=== PATIENT | female | born 1960 | race American Indian/Alaskan Native ===

== ENCOUNTER 2017-01-07 22:44 | Inpatient (IN) | payer MEDICAID ==
[2017-01-07 22:44] VITALS: BMI 23.8
--- NOTE | 2017-01-07 23:36 | C.PDOC ---
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 Denies suicidal ideation, homicidal ideation, or drug use. Patient also notes she has had a cough with some yellow phlegm. Time Seen by Provider: 01/07/17 23:04 Chief Complaint (Nursing): Substance Abuse History Per: Patient History/Exam Limitations: no limitations Onset/Duration Of Symptoms: Days Current Symptoms Are (Timing): Still Present Suicide/Self Injury Attempted (Context): None Modifying Factor(s): Alcohol Associated Symptoms: denies: Depression, Suicidal Thoughts, Suicidal Plan Involuntary Hold By: None Recent travel outside of the [place]: No Past Medical History Reviewed: Historical Data, Nursing Documentation, Vital Signs Vital Signs: Last Vital Signs Temp 98.4 F 01/07/17 22:49 Pulse 102 H 01/07/17 22:49 Resp 18 01/07/17 22:49 BP 131/94 H 01/07/17 22:49 Pulse Ox 99 01/08/17 00:51 - Medical History PMH: Asthma, Bronchitis, CHF, HTN Surgical History: No Surg Hx - [facility] DETOXIF[facility] SERVICES FOR SUBSTANCE ABUSE TREATMENT (05/27/16) Family History: States: Unknown Family Hx - Social History Hx Alcohol Use: Yes Hx Substance Use: No (Former use of heroine) - Immunization History Hx Tetanus Toxoid Vaccination: No Hx Influenza Vaccination: Yes (Jan 2016) Hx Pneumococcal Vaccination: No Review Of Systems Except As Marked, All Systems Reviewed And Found Negative. Constitutional: Positive for: Other (ETOH use) Respiratory: Positive for: Cough, Sputum. Negative for: Shortness of Breath Physical Exam - Physical Exam Appears: Non-toxic, No Acute Distress Skin: Normal Color, Warm, Dry Head: Atraumatic, Normacephalic Oral Mucosa: Moist Chest: Symmetrical Cardiovascular: Rhythm Regular Respiratory: Other (Coarse breath sounds) Gastrointestinal/Abdominal: Soft, No Tenderness Neurological/Psych: Oriented x3, Normal Speech, Normal Cognition ED Course And Treatment - Laboratory Results Result Diagrams: 01/08/17 00:22 01/08/17 00:22 O2 Sat by Pulse Oximetry: 99 (Room air) Pulse Ox Interpretation: Normal Medical Decision Making Medical Decision Making: Impression: ETOH abuse Plan: Blood work, CXR, Urinalysis case s/o at 0100 Disposition - Disposition Disposition Time: 01:00 Condition: FAIR Forms: [facility] (Mexican) - Clinical Impression Clinical Impression: Alcohol use disorder, severe, dependence - Scribe Statement The provider has reviewed the documentation as recorded by the Scribe Elver Gonzalez All medical record entries made by the Scribe were at my direction and personally dictated by me. I have reviewed the chart and agree that the record accurately reflects my personal performance of the history, physical exam, medical decision making, and the department course for this patient. I have also personally directed, reviewed, and agree with the discharge instructions and disposition. Physician Patient Turnover Patient Signed Over To: Jamar Call (Pending medical clearance)
[2017-01-08 00:34] LABS: RBC URINE < 1 /hpf (0-3); URINE BILIRUBIN NEGATIVE (NEGATIVE); URINE BLOOD 1+ (NEGATIVE); URINE COLOR Yellow (YELLOW); URINE GLUCOSE (UA) NORMAL (Normal); URINE KETONE TRACE mg/dL (NEGATIVE); URINE LEUKOCYTE ESTERASE NEG Leu/uL (Negative); URINE PROTEIN 1+ mg/dL (NEGATIVE); WBC URINE 1 /hpf (0-5)
[2017-01-08 00:39] LABS: BASO % 0.6 % (0.0-2.0); EOS % 0.8 % (0.0-4.0); HEMATOCRIT 40.5 % (34.0-47.0); LYMPH # 2.7 K/uL (1.0-4.3); LYMPH % 52.7 % (20.0-40.0); MEAN CELL VOLUME 96.3 fL (81.0-99.0); MEAN CORPUSCULAR HEMOGLOBIN 34.5 pg (27.0-31.0); MEAN CORPUSCULAR HGB CONC 35.8 g/dL (33.0-37.0); MONO # 0.5 K/uL (0.0-0.8); MONO % 10.5 % (0.0-10.0); NRBC % 0.5 % (0.0-2.0); WHITE BLOOD COUNT 5.1 K/uL (4.8-10.8)
[2017-01-08 00:44] LABS: CHLORIDE 99 mmol/L (98-107); POTASSIUM 3.2 mmol/L (3.6-5.2); SODIUM 138 mmol/L (132-148)
[2017-01-08 00:46] LABS: AST/SGOT 454 U/L (14-36); BILIRUBIN,TOTAL 1.2 mg/dL (0.2-1.3); CARBON DIOXIDE 22 mmol/L (22-30); GFR AFRICAN-AMERICAN > 60; TOTAL PROTEIN 8.4 g/dL (6.3-8.3)
[2017-01-08 00:47] LABS: ALCOHOL SERUM 289 mg/dl (0-10); ALKALINE PHOSPHATASE 114 U/L (38-126); ALT/SGPT 230 U/L (9-52); BLOOD UREA NITROGEN 12 mg/dL (7-17); CALCIUM 8.7 mg/dl (8.6-10.4); GLUCOSE,RANDOM 105 mg/dL (65-105)
[2017-01-08] MEDS ORDERED: Potassium Chloride 10 mEq ER Tab PO STA (02:39)
[2017-01-08] MEDS ORDERED: Potassium Chloride 20 mEq ER Tab PO ONE (02:41)
--- NOTE | 2017-01-08 06:27 | PCM.BM ---
<Janna Gongora - Last Filed: 01/08/17 11:41> Family Contact Family involvement: Patient does not wish Family/SO involvement Family contact: Patient agrees to contact - Goals for Treatment Patient goals for treatment: Complete detox and transition to inpatient rehab. Discharge/Continuing Care - Education Needs Education Needs: Patient Medication, Patient Diagnosis/Disease Process, Patient Coping Skills, Patient Anger Management skills, Patient Placement options - Discharge Discharge Criteria: No longer exhibiting s/s of withdrawal, Reduction of target symptoms Discharge to:: Substance Abuse Rehab - Treatment Team Participation Patient/Family/SO Statement: 01/08/17 11:42 "I gotta do something serious...everyone I live with drinks..." Discussed with Family/SO: No Was Patient/Family/SO present at Treatment Team Meeting: Yes <Marj Aguilar - Last Filed: 01/09/17 15:07> Treatment Plan Problems - Problems identified on initial assessmt Alcohol Abuse Date Initiated: 01/08/17 Time Initiated: 06:20 Assessment reference: NA Status: Active Treatment assets and liabiliti Patient Assests: self-reliant, ADL independent Patient Liabilities: poor support system, substance abuse (ETOH), medical problems (Hep C, Asthma, Hypertension) - Milieu Protocol Maintain good personal hygiene: every shift Encourage regular showers, every shift Remind patient to perform daily oral care Maintain personal safety: every shift Educate patient to report safety concerns to staff, every shift Monitor environment for contraband/sharps Medication safety: Monitor for expected outcome, potential side effects: every shift, Assess barriers to learning: every shift, Assess readiness for medication education: every shift <Tucker Morrell - Last Filed: 01/11/17 10:58> - Diagnosis (1) Alcohol use disorder, severe, dependence Status: Acute Interventions: 01/11/17 10:58 * Assess 7x/week regarding severity of withdrawal * Educate regarding risks, benefits, side effects and alternatives of medications * Use Motivational Interviewing for abstinence * Use CBT for relapse prevention * Medication management for withdrawal symptoms * Encourage medication assisted treatment * (2) Opioid use disorder, severe, dependence Status: Acute Interventions: 01/11/17 10:58 * Assess 7x/week regarding severity of withdrawal * Educate regarding risks, benefits, side effects and alternatives of medications * Use Motivational Interviewing for abstinence * Use CBT for relapse prevention * Medication management for withdrawal symptoms * Encourage medication assisted treatment *
[2017-01-08] MEDS ORDERED: Albuterol HFA 90 mcg/actuation (8 g) INH PRN (08:52)
[2017-01-08] MEDS ORDERED: Tramadol 25 mg PO PRN (10:42)
--- NOTE | 2017-01-08 10:45 | RAD ---
PROCEDURE: CHEST RADIOGRAPH, 1 VIEW HISTORY: Detox/Psy COMPARISON: None available. FINDINGS: LUNGS: Prominent bibasilar breast and nipple shadows. No focal infiltrate or effusion. PLEURA: No pneumothorax or pleural fluid seen. CARDIOVASCULAR: Normal. OSSEOUS STRUCTURES: Deformity of the distal right clavicle. VISUALIZED UPPER ABDOMEN: Normal. OTHER FINDINGS: None. IMPRESSION: No active disease.
[2017-01-08] MEDS: Multiple Vitamins Tab PO SCH (10:47)
[2017-01-08 12:20] LABS: CHLORIDE 98 mmol/L (98-107); SODIUM 134 mmol/L (132-148)
[2017-01-08 12:22] LABS: GFR AFRICAN-AMERICAN > 60
[2017-01-08 12:23] LABS: ALKALINE PHOSPHATASE 114 U/L (38-126); ALT/SGPT 234 U/L (9-52); AST/SGOT 473 U/L (14-36); BILIRUBIN,TOTAL 1.8 mg/dL (0.2-1.3); BLOOD UREA NITROGEN 12 mg/dL (7-17); CALCIUM 9.3 mg/dl (8.6-10.4); CARBON DIOXIDE 25 mmol/L (22-30); GLUCOSE,RANDOM 181 mg/dL (65-105); TOTAL PROTEIN 8.4 g/dL (6.3-8.3)
[2017-01-08 12:24] LABS: MAGNESIUM 1.7 mg/dL (1.6-2.3)
[2017-01-08 12:53] LABS: THYROID STIMULATING HORMONE 2.35 mIU/L (0.46-4.68)
[2017-01-08] MEDS: LIPASE/PROTEASE/AMYLASE 4,200 U ECC PO SCH ×3 (13:28→21:09)
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
[2017-01-09] MEDS: Multiple Vitamins Tab PO SCH (09:41)
[2017-01-09] MEDS: LIPASE/PROTEASE/AMYLASE 4,200 U ECC PO SCH ×3 (09:43→17:29)
[2017-01-09] MEDS ORDERED: Benzocaine/Menthol (Cepacol) Lozenge MT PRN (09:55)
--- NOTE | 2017-01-09 13:55 | PCM.PYCHPN ---
Psychiatric Progress Note - Psychiatric Progress Note Patient seen today, length of contact: 17 mins Patient Chief Complaint: "I think I'm getting better" Problems Identified/Issues Discussed: The pt is seen, chart reviewed, case discussed with staff. Pt reports that she has stayed in bed for the majority of the time. Pt states she slept well through out the night and has no other complaints at this time. Pt reports she still has some tremors but they are better than yesterday. The pt is compliant with medications and reports no side-effects. Symptoms are improving but needs more time to stabilize. After care discussed, support and psychoeducation given. Pt states that she " can not go to rehab because I can not leave my dog who is having puppies alone" although she realizes that this is perhaps the best thing for her. Pt states she will attend an outpatient program. Pt is encouraged to do so. Medication Change: Yes (Detox meds change daily ) Medical Record Reviewed: Yes Mental Status Examination - Cognitive Function Orientation: Person, Place, Situation, Time Memory: Intact Attention: WNL Concentration: WNL Association: WNL Fund of Knowledge: WNL - Mood Mood: Neutral - Affect Affect: Constricted - Speech Speech: Soft - Formal Thought Process Formal Thought Process: No Impairment - Suicidal Ideation Suicidal Ideation: No - Homicidal Ideation Homicidal Ideation: No Goal/Treatment Plan - Goal/Treatment Plan Need for Continued Stay: Remain at risks for inpatient hospitalization, Discharge may exacerbated symptoms Progress Toward Problem(s) and Goals/Treatment Plan: Ativan detox Continue all other medications as needed. Gabapentin for augmentation Attend groups and activities Supportive therapy and psychoeducation [place] for abstinence CBT for relapse prevention Encourage MAT Refer to rehab or IOP Attend self-help groups as well Resume prozac and indiv tx for depression 17 mins Estimated Date of D/C: 01/13/17
[2017-01-10] MEDS: LIPASE/PROTEASE/AMYLASE 4,200 U ECC PO SCH ×3 (09:20→17:39)
[2017-01-10] MEDS: Multiple Vitamins Tab PO SCH (09:21)
--- NOTE | 2017-01-10 14:57 | PCM.PYCHPN ---
Psychiatric Progress Note - Psychiatric Progress Note Patient seen today, length of contact: 16 mins Patient Chief Complaint: "I'm good doc" Problems Identified/Issues Discussed: The pt is seen, chart reviewed, case discussed with staff. Pt reports that she is sleeping well and states that is happy her detox is going well. She also attends groups and enjoys them. Pt reports she is still a "little wobbly" but denies having major tremors. The pt is compliant with medications and reports no side-effects. Symptoms are improving but needs more time to stabilize. After care discussed, support and psychoeducation given. Pt states she will attend an outpatient program at [facility] in [place], [place], pt is encouraged to do so. Medication Change: Yes (Detox meds change daily ) Medical Record Reviewed: Yes Mental Status Examination - Cognitive Function Orientation: Person, Place, Situation, Time Memory: Intact Attention: WNL Concentration: WNL Association: WN Fund of Knowledge: WNL - Mood Mood: Neutral - Affect Affect: Constricted - Speech Speech: Soft - Formal Thought Process Formal Thought Process: No Impairment - Suicidal Ideation Suicidal Ideation: No - Homicidal Ideation Homicidal Ideation: No Goal/Treatment Plan - Goal/Treatment Plan Need for Continued Stay: Remain at risks for inpatient hospitalization, Discharge may exacerbated symptoms Progress Toward Problem(s) and Goals/Treatment Plan: Ativan detox Continue all other medications as needed. Gabapentin for augmentation Attend groups and activities Supportive therapy and psychoeducation [place] for abstinence CBT for relapse prevention Encourage MAT Refer to rehab or IOP Attend self-help groups as well Resume prozac and indiv tx for depression 16 mins Estimated Date of D/C: 01/13/17 - Smoking Cessation Smoking Cessation Initiated: Yes
[2017-01-11] MEDS: LIPASE/PROTEASE/AMYLASE 4,200 U ECC PO SCH ×3 (09:04→17:22)
[2017-01-11] MEDS: Multiple Vitamins Tab PO SCH (09:05)
--- NOTE | 2017-01-11 14:55 | PCM.PYCHPN ---
Psychiatric Progress Note - Psychiatric Progress Note Patient seen today, length of contact: 15 minute Patient Chief Complaint: I'm feeling much better Problems Identified/Issues Discussed: Patient seen. Chart reviewed. Case discussed with the staff. Issues related to illness and treatment were discussed with the patient. Reported compliant with treatment with no adverse affects. Tolerating treatment very well. Reported feeling much better with no withdrawal symptoms. Better sleep. LFTs were elevated. We'll repeat. At the time of evaluation, patient was awake alert oriented 3, had no delusions , no auditory visual hallucinations, no suicidal ideations or homicidal ideations. Medical Problems: Hypertension Diagnostic Results: Reviewed DSM 5 Symptoms Update: Improvement with treatment Medication Change: No Medical Record Reviewed: Yes Mental Status Examination - Cognitive Function Orientation: Person, Place, Situation, Time Memory: Intact Attention: WNL Concentration: WNL Association: WN Fund of Knowledge: [facility] Decription of patient's judgement and insights: Fair - Mood Mood: Neutral - Affect Affect: Other (Appropriate) - Speech Speech: Soft - Formal Thought Process Formal Thought Process: No Impairment Psychotic Thoughts and Behaviors: None - Suicidal Ideation Suicidal Ideation: No - Homicidal Ideation Homicidal Ideation: No Goal/Treatment Plan - Goal/Treatment Plan Need for Continued Stay: Remain at risks for inpatient hospitalization, Discharge may exacerbated symptoms, Severe functional impairment Progress Toward Problem(s) and Goals/Treatment Plan: Patient education Supportive therapy Continue treatment as before Patient will go to [facility] after discharge from the hospital for follow-up care. Estimated Date of D/C: 01/13/17 - Smoking Cessation Smoking Cessation Initiated: Yes
[2017-01-11 17:58] LABS: BILIRUBIN,DIRECT 0.8 mg/dL (0.0-0.4); BILIRUBIN,TOTAL 1.1 mg/dL (0.2-1.3)
[2017-01-11 20:20] VITALS: RESP 18
[2017-01-12] MEDS: Multiple Vitamins Tab PO SCH (09:16)
[2017-01-12] MEDS: LIPASE/PROTEASE/AMYLASE 4,200 U ECC PO SCH (09:17)
[2017-01-12 09:29] VITALS: BP 146/90; PULSE 89; TEMP 98.5; O2SAT 98
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
== END 2017-01-12 09:30 | disposition home or self-care (01) | DRG 744 ==
LOC: C.ER 22:44 → C.7D 01-08 05:10
PROVIDERS: ADMIT Psychiatry & Neurology Psychiatry; ATTEND Psychiatry & Neurology Psychiatry
PROC: HZ2ZZZZ Detoxification Services for Substance Abuse Treatment (ICD-10-PCS; principal; 2017-01-08)
PROC: HZ42ZZZ Group Counseling for Substance Abuse Treatment, Cognitive-Behavioral (ICD-10-PCS; 2017-01-08)
PROC: HZ52ZZZ Individual Psychotherapy for Substance Abuse Treatment, Cognitive-Behavioral (ICD-10-PCS; 2017-01-08)
PROC: HZ59ZZZ Individual Psychotherapy for Substance Abuse Treatment, Supportive (ICD-10-PCS; 2017-01-08)
PROC: HZ56ZZZ Individual Psychotherapy for Substance Abuse Treatment, Psychoeducation (ICD-10-PCS; 2017-01-08)
PROC: HZ46ZZZ Group Counseling for Substance Abuse Treatment, Psychoeducation (ICD-10-PCS; 2017-01-08)
DX: F10.230 Alcohol dependence with withdrawal, uncomplicated (principal); I11.0 Hypertensive heart disease with heart failure; F11.20 Opioid dependence, uncomplicated; I50.9 Heart failure, unspecified; B19.20 Unspecified viral hepatitis C without hepatic coma; J45.909 Unspecified asthma, uncomplicated; Y90.8 Blood alcohol level of 240 mg/100 ml or more; F17.210 Nicotine dependence, cigarettes, uncomplicated; F32.9 Major depressive disorder, single episode, unspecified